=== PATIENT | male | born 1995 | race Caucasian/White ===

== ENCOUNTER 2017-02-13 19:25 | Emergency (ER) | payer OTHER ==
[~2017-02-13] VITALS: Ht 180 cm; Wt 88.5 kg
[2017-02-13] MEDS ORDERED: NYSTATIN100000 U/G T (20:09)
== END 2017-02-13 20:17 | disposition home or self-care (01) ==
LOC: ED 19:25
DX: B35.4 Tinea corporis (principal)

== ENCOUNTER 2017-02-21 19:47 | Emergency (ER) | payer OTHER ==
[~2017-02-21] VITALS: Ht 180.3 cm; Wt 89.8 kg
[~2017-02-21 19:47] MED LIST: NYSTATIN100000 U/G T
[2017-02-21] MEDS ORDERED: CEPHALEXIN500 M1 PO (21:37)
== END 2017-02-21 23:01 | disposition home or self-care (01) ==
LOC: ED 19:47
DX: S40.812A Abrasion of left upper arm, initial encounter (principal); V89.2XXA Person injured in unspecified motor-vehicle accident, traffic, initial encounter; Y93.89 Activity, other specified; Y92.413 State road as the place of occurrence of the external cause; Y99.9 Unspecified external cause status